=== PATIENT | female | born 1995 | race Caucasian/White ===

== ENCOUNTER 2020-06-10 15:36 | Emergency (ER) | payer SELFPAY ==
[~2020-06-10] VITALS: Ht 160 cm; Wt 49.9 kg
--- NOTE | 2020-06-10 15:40 | NUR ---
BIB [facility] 89 FROM HOME,FAMILY WANTS HER CHECKED,NOTED TO BE SLEEPY BLOOD SUGAR 112, ADMIT TO TAKING "SLEEP MEDICATION". SEEN BY DR VANG
[2020-06-10] MEDS ORDERED: NALO4SPR NS (17:01)
--- NOTE | 2020-06-10 17:52 | NUR ---
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
[2020-06-10 18:51] VITALS: BP 121/62
--- NOTE | 2020-06-10 18:51 | NUR ---
pt picked up by faye gordon. Patient discharged to home in stable condition. Written and verbal after care instructions given. Patient verbalizes understanding of instruction. IV removed. Catheter intact and site benign. Pressure and 4x4 applied to site. No bleeding noted.
== END 2020-06-10 18:51 | disposition home or self-care (01) ==
LOC: ER 15:37
DX: T40.601A Poisoning by unspecified narcotics, accidental (unintentional), initial encounter (principal); Z79.899 Other long term (current) drug therapy; Y92.89 Other specified places as the place of occurrence of the external cause